=== PATIENT | female | born 1950 | race Caucasian/White ===

== ENCOUNTER 2017-05-19 07:07 | Day surgery (SDC) | payer MEDICARE, OTHER ==
[~2017-05-19] VITALS: Ht 167.6 cm; Wt 71.0 kg
[~2017-05-19 07:07] MED LIST: SODIUM CHLORIDE 0.9% 1,000 ML IV ONE
[2017-05-19] MEDS ORDERED: SODIUM CHLORIDE 0.9% 1,000 ML IV ONE (07:15)
[2017-05-19] MEDS ORDERED: METO-558 PO (07:50)
[2017-05-19] MEDS ORDERED: CALC-916 PO (07:50)
[2017-05-19] MEDS ORDERED: ERGO2000 PO (07:50)
[2017-05-19] MEDS ORDERED: MULT-1259 PO (07:50)
[2017-05-19] MEDS ORDERED: METF500T4 PO (07:50)
[2017-05-19] MEDS ORDERED: OMEG-76 PO (07:50)
[2017-05-19] MEDS ORDERED: LOSA50TA37 PO (07:50)
[2017-05-19] MEDS ORDERED: NAPR375T6 PO (07:50)
[2017-05-19] MEDS ORDERED: LIRA0.6P2 SQ (07:51)
[2017-05-19 07:54] LABS: BASOPHILS % (AUTO) 0.3 % (0.0-2.0); EOSINOPHILS % (AUTO) 3.3 % (1.0-6.0); HEMATOCRIT 38.1 % (36-46); HEMOGLOBIN 12.9 g/dL (12.0-16.0); LYMPHOCYTES # (AUTO) 1.6 K/uL (1.0-4.8); LYMPHOCYTES % (AUTO) 26.6 % (22.0-44.0); MEAN CORPUSCULAR HEMOGLOBIN 28.7 pg (26.0-34.0); MEAN CORPUSCULAR HGB CONC 33.7 G/dL (31.0-37.0); MEAN CORPUSCULAR VOLUME 85 fL (80-100); MONOCYTES # (AUTO) 0.5 K/uL (0.1-1.0); MONOCYTES % (AUTO) 8.2 % (2.0-9.0); NEUTROPHILS # (AUTO) 3.7 K/uL (1.8-7.7); NEUTROPHILS % (AUTO) 61.6 % (40.0-70.0); PLATELET COUNT (AUTO) 184 K/uL (150-450); RED BLOOD CELL COUNT(AUTO) 4.48 MIL/uL (4.00-5.20); RED CELL DISTRIBUTION WIDTH 13.9 % (11.5-14.5)
[2017-05-19 08:09] LABS: PROTHROMBIN TIME 10.9 SEC (9.4-11.6)
[2017-05-19 08:22] LABS: CALCIUM, TOTAL 9.1 mg/dL (8.8-10.5); CREATININE 1.02 mg/dL (0.60-1.30); POTASSIUM 4.1 mmol/L (3.5-5.1)
[2017-05-19] MEDS ORDERED: LIDOCAINE HCL/PF 1% 30 ML VIAL ONE (09:15)
[2017-05-19] MEDS ORDERED: SODIUM BICARBONATE 50 MEQ/50 ML VIAL ONE (09:15)
[2017-05-19] MEDS ORDERED: IOHEXOL 300 MG/ML 100 ML VIAL ONE (09:15)
[2017-05-19] MEDS ORDERED: HEPARIN SODIUM 1000 UNITS/NS 1,000 ML ONE (09:16)
[2017-05-19 10:03] VITALS: BP 164/89
[2017-05-19] MEDS ORDERED: VERAPAMIL HCL 2.5 MG/ML 2 ML VIAL ONE (10:16)
[2017-05-19] MEDS ORDERED: NITROGLYCERIN 50 MG/D5% WATER 0 ML ONE (10:16)
[2017-05-19] MEDS ORDERED: FentaNYL CITRATE-PF 100 MCG/2 ML VIAL ONE (10:18)
[2017-05-19] MEDS ORDERED: MIDAZOLAM HCL 2 MG/2 ML VIAL ONE (10:18)
[2017-05-19] MEDS ORDERED: HEPARIN SODIUM 2,000 UNITS in HEPARIN SODIUM 1000 UNITS/NS 1,000 ML IARTER ONE (10:38)
[2017-05-19] MEDS ORDERED: LIDOCAINE 1% 30 ML/SOD BICARB 8.4% 4 ML SQ ONE (10:45)
[2017-05-19] MEDS ORDERED: IOHEXOL 300 MG/ML 150 ML VIAL IARTER ONE (10:45)
[2017-05-19 10:58] VITALS: BP 133/67
== END 2017-05-19 15:08 | disposition home or self-care (01) ==
LOC: CATHLAB 07:07
PROVIDERS: ATTEND Internal Medicine Cardiovascular Disease
DX: I25.10 Atherosclerotic heart disease of native coronary artery without angina pectoris (principal); I35.0 Nonrheumatic aortic (valve) stenosis; E11.9 Type 2 diabetes mellitus without complications; E78.5 Hyperlipidemia, unspecified; I10 Essential (primary) hypertension; F32.9 Major depressive disorder, single episode, unspecified; Z98.890 Other specified postprocedural states; Z72.89 Other problems related to lifestyle; Z79.84 Long term (current) use of oral hypoglycemic drugs; Z79.01 Long term (current) use of anticoagulants; Z79.899 Other long term (current) drug therapy
CPT/HCPCS: 36415; 80048; 85025; 85610; 85730; 93005; 93458; J1644; J3490 ×2; J7030; Q9967; J2250; J3010